=== PATIENT | female | born 1960 | race Caucasian/White ===

== ENCOUNTER → 2017-05-03 | Outpatient (CLI) | payer OTHER | LOC: BMCIMAGING 15:43 | PROVIDERS: ATTEND Internal Medicine | DX: R05 Cough (principal) ==

== ENCOUNTER → 2018-11-07 | Outpatient (CLI) | payer OTHER | LOC: BMCIMAGING 11:41 | PROVIDERS: ATTEND Allergy & Immunology Allergy | DX: R05 Cough (principal) ==